=== PATIENT | female | born 1970 | race Caucasian/White ===

== ENCOUNTER → 2017-03-24 | Outpatient (CLI) | payer OTHER | LOC: FIMAGING 14:36 | PROVIDERS: ATTEND Internal Medicine | DX: Z12.31 Encounter for screening mammogram for malignant neoplasm of breast (principal) ==

== ENCOUNTER 2017-05-31 18:41 | Emergency (ER) | payer OTHER ==
--- NOTE | 2017-05-31 19:24 | CPEKG ---
Heart Rate: 64 RR Interval: 938 P-R Interval: 132 QRSD Interval: 84 QT Interval: 404 QTC Interval: 417 P [place]: 51 QRS [place]: 18 T Wave [place]: 20 EKG Severity - NORMAL ECG - EKG Impression: SINUS RHYTHM Electronically Signed By: Jad Sun 31-May-2017 20:17:58
[2017-05-31 19:27] LABS: PLATELET COUNT 215 10^3/uL (150-400)
--- NOTE | 2017-05-31 19:36 | EDPHY ---
H & P Stated Complaint: midsternal CP since Wednesday, cough. Time Seen by Provider: 05/31/17 19:35 HPI/ROS: CHIEF COMPLAINT: Chest pain HISTORY OF PRESENT ILLNESS: The patient presents the ED with 2-3 day history of chest pain. She has had a slight dry nonproductive cough with her symptoms. She reports a chest pain which has been constant with paroxysms of pain which are not worsened with movement, exertion or eating. The patient saw her primary care provider who referred her to the emergency department for further evaluation. The patient denies any asymmetric calf pain or swelling. She denies pleuritic chest pain. She denies any neck pain, headache, numbness, weakness or additional acute complaints. REVIEW OF SYSTEMS: A comprehensive 10 point review of systems is otherwise negative aside from elements mentioned in the history of present illness. Source: Patient - Personal History LMP (Females 10-55): 8-14 Days Ago Current Tetanus Diphtheria and Acellular Pertussis (TDAP): Yes - Medical/Surgical History Hx Asthma: No Hx Chronic Respiratory Disease: No Hx Diabetes: No Hx Cardiac Disease: No Hx Renal Disease: No Hx Cirrhosis: No Hx Alcoholism: No Hx HIV/AIDS: No Hx Splenectomy or Spleen Trauma: No Other PMH: Denies - Social History Smoking Status: Never smoked - Physical Exam Exam: General Appearance: Alert, no distress Eyes: Pupils equal and round no pallor or injection ENT, Mouth: Mucous membranes moist Respiratory: There are no retractions, lungs are clear to auscultation Cardiovascular: Regular rate and rhythm Gastrointestinal: Abdomen is soft and nontender, no masses, bowel sounds normal Neurological: 5/5 strength all 4 extremities Skin: Warm and dry, no rashes Musculoskeletal: Neck is supple nontender Extremities: symmetrical, full range of motion Constitutional: Initial Vital Signs Temperature (C) 36.4 C 05/31/17 18:43 Heart Rate 74 05/31/17 18:43 Respiratory Rate 16 05/31/17 18:43 Blood Pressure 113/85 H 05/31/17 18:43 O2 Sat (%) 97 05/31/17 18:43 O2 Delivery Mode Room Air Allergies/Adverse Reactions: ephedrine Allergy (Verified 05/31/17 18:47) Home Medications: Medication Instructions Recorded Flonase Nasal [place] 05/31/17 Medical Decision Making - Diagnostics EKG Interpretation: EKG: Complete interpretation has been separately recorded in the [email or web address] archive. Summary impression: Sinus rhythm, rate 64 Imaging Results: Imaging Impressions Chest X-Ray 05/31/17 19:36 Impression: 1. Mild bronchitis/airways disease. 2. No definite focal pneumonia. ED Course/Re-evaluation: The patient presents to the ED with several days of atypical chest pain in the setting of a mild dry nonproductive cough. The patient's EKG demonstrates no evidence of ischemia. In the patient's troponin is normal. The patient's chest x-ray demonstrates no evidence of a pneumonia or pneumothorax. She has no evidence of an abnormal mediastinum. The patient has no risk factors for coronary artery disease. My suspicion for ACS is quite low. At this point time in the setting of her respiratory symptoms I do feel it is reasonable to give her an albuterol inhaler to see if that improves her symptoms of discomfort. The patient is given the contact number of our on-call shift manager for any mild ongoing chest pain. She is instructed to return to the ED for markedly worsening chest pain or other concerns. Differential Diagnosis: Differential diagnosis considered includes acute coronary syndrome, pneumonia, pneumothorax, costochondritis, bronchitis, pleurisy - Data Points Laboratory Results: Laboratory Results 05/31/17 19:12 05/31/17 19:12 05/31/17 05/31/17 19:12 19:12 WBC 4.11 10^3/uL 10^3/uL (3.80-9.50) RBC 3.87 10^6/uL L 10^6/uL (4.18-5.33) Hgb 12.1 g/dL L g/dL (12.6-16.3) Hct 35.5 % L % (38.0-47.0) MCV 91.7 fL fL (81.5-99.8) MCH 31.3 pg pg (27.9-34.1) MCHC 34.1 g/dL g/dL (32.4-36.7) RDW 12.7 % % (11.5-15.2) Plt Count 215 10^3/uL 10^3/uL (150-400) MPV 11.1 fL fL (8.7-11.7) Neut % (Auto) 54.0 % % (39.3-74.2) Lymph % (Auto) 30.4 % % (15.0-45.0) [place] % (Auto) 12.2 % % (4.5-13.0) Eos % (Auto) 2.7 % % (0.6-7.6) Baso % (Auto) 0.5 % % (0.3-1.7) Nucleat RBC Rel Count 0.0 % % (0.0-0.2) Absolute Neuts (auto) 2.22 10^3/uL 10^3/uL (1.70-6.50) Absolute Lymphs (auto) 1.25 10^3/uL 10^3/uL (1.00-3.00) Absolute Monos (auto) 0.50 10^3/uL 10^3/uL (0.30-0.80) Absolute Eos (auto) 0.11 10^3/uL 10^3/uL (0.03-0.40) Absolute Basos (auto) 0.02 10^3/uL 10^3/uL (0.02-0.10) Absolute Nucleated RBC 0.00 10^3/uL 10^3/uL (0-0.01) Immature Gran % 0.2 % % (0.0-1.1) Immature Gran # 0.01 10^3/uL 10^3/uL (0.00-0.10) Sodium 139 mEq/L mEq/L (135-145) Potassium 3.8 mEq/L mEq/L (3.5-5.2) Chloride 105 mEq/L mEq/L (97-110) Carbon Dioxide 25 mEq/l mEq/l (22-31) Anion Gap 9 mEq/L mEq/L (8-16) BUN 13 mg/dL mg/dL (7-23) Creatinine 0.6 mg/dL mg/dL (0.6-1.0) Estimated GFR > 60 Glucose 86 mg/dL mg/dL (70-100) Calcium 9.4 mg/dL mg/dL (8.5-10.4) Troponin I < 0.012 ng/mL ng/mL (0.000-0.034) Departure - Departure Disposition: Home, Routine, Self-Care Clinical Impression: Chest pain, Bronchitis Condition: Good Instructions: Acute Bronchitis (ED) Additional Instructions: 1. I recommend using albuterol for your cough. 2. Take Ibuprofen or Motrin 600 mg by mouth three times a day. 3. Please return to the ED for markedly worsening chest pain, difficulty breathing or other concerns. I would recommend following up with the shift manager you have been referred to for any ongoing mild symptoms of chest pain. You should return to the ED sooner for markedly worsening chest pain, exertional chest pain or other acute complaints. Referrals: Eunice Reyna MD [Primary Care Provider] - As per Instructions Harsha Asher MD [Medical Doctor] - As per Instructions
[2017-05-31] MEDS ORDERED: ALBUTEROL INH PREPACK MDI TAKEHOME ONE (20:15)
[2017-05-31 20:37] VITALS: BP 100/74
== END 2017-05-31 20:36 | disposition home or self-care (01) ==
DX: R07.9 Chest pain, unspecified (principal); J40 Bronchitis, not specified as acute or chronic

== ENCOUNTER → 2018-05-30 | Outpatient (CLI) | payer OTHER | LOC: FIMAGING 09:42 | PROVIDERS: ATTEND Internal Medicine | DX: Z12.31 Encounter for screening mammogram for malignant neoplasm of breast (principal) ==